=== PATIENT | female | born 1995 | race Caucasian/White ===

== ENCOUNTER → 2021-06-01 13:28 | Outpatient (CLI) | payer OTHER, MEDICAID, SELFPAY ==
[2021-06-01 14:00] LABS: COVID19 -Nasal RAPID Negative (Negative)
== END ==
PROVIDERS: PCP Family Medicine; Referring Provider Physician Assistant; Visit Provider Physician Assistant
DX: Z20.822 Contact with and (suspected) exposure to COVID-19 (principal); R05 Cough; R19.7 Diarrhea, unspecified; R51.9 Headache, unspecified; R53.83 Other fatigue
CPT/HCPCS: 87635